=== PATIENT | female | born 1935 | race Caucasian/White ===

== ENCOUNTER 2021-09-19 15:26 | Inpatient (IN) | payer MEDICARE, OTHER ==
[2021-09-19 16:06] LABS: #Eosinphils 0.2 thou/uL (0.0-0.7); #Monocytes 0.8 thou/uL (0.11-0.59); #Neutrophils 7.8 thou/uL (1.40-6.50); %Basophils 0.4 % (0.0-1.0); %Eosinophils 1.8 % (0.0-10.0); %Lymphocytes 10.1 % (21.0-51.0); %Monocytes 7.9 % (0.0-10.0); %Neutrophils 79.8 % (42.0-75.0); Hemoglobin 13.2 g/dL (12.0-16.0); Mean Corpuscular HGB CONC 33.5 g/dL (32.0-36.0); Mean Corpuscular Hemoglobin 30.1 pg (27.0-31.0); Mean Corpuscular Volume 89.8 fL (78.0-98.0); Mean Platelet Volume 8.2 fL (7.4-10.4); Platelet Count 300 thou/uL (130-400); RBC Distribution Width 13.6 % (11.5-14.5); Red Blood Cell (RBC) Count 4.38 mill/uL (4.20-5.40); White Blood Cell (WBC) Count 9.8 thou/uL (4.8-10.8)
[2021-09-19] MEDS ORDERED: Vancomycin 1 GM/200 ML BAG ONE (16:23)
[2021-09-19 16:25] LABS: ALT (SGPT) 13 U/L (8-55); AST (SGOT) 16 U/L (5-34); Albumin 3.6 g/dL (3.4-4.8); Alkaline Phosphatase 101 U/L (40-110); Anion Gap 14 mmol/L (10-20); BUN (Urea Nitrogen) 16 mg/dL (9.8-20.1); Bilirubin, Total 0.4 mg/dL (0.2-1.2); Calc. Creatinine Clearance 0 mL/min (70-130); Calcium 9.4 mg/dL (7.8-10.44); Carbon Dioxide 26 mmol/L (23-31); Chloride 99 mmol/L (98-107); Globulin 3.5 g/dL (2.4-3.5); Glucose 110 mg/dL (83-110); Potassium 3.9 mmol/L (3.5-5.1); Protein, Total 7.1 g/dL (5.8-8.1); Sodium 135 mmol/L (136-145)
[2021-09-19 16:26] LABS: CRP (Inflammatory) 1.75 mg/dL (= or < 0.5)
[2021-09-19] MEDS ORDERED: Furosemide 20 MG/2 ML VIAL ONE (19:56)
[2021-09-19 20:05] LABS: Bacteria/HPF None Seen HPF (None Seen); Bilirubin Negative (Negative); Blood, Urine Negative (Negative); Clarity Clear (Clear); Glucose, Urine (Dipstick) Normal (Negative); Ketone, Urine Negative (Negative); Leukocyte Negative Leu/uL (Negative); Mucous/LPF Rare LPF (<2+); Nitrite Negative (Negative); Protein, Urine (Dipstick) 30 mg/dL (Neg-Trace); RBC/HPF 0-3 HPF (0-3); Specific Gravity, Urine 1.017 (1.002-1.036); Squamous Epithelial 0-3 HPF (0-3); Urobilinogen Normal mg/dL (Less than 2); WBC/HPF 0-3 HPF (0-3); pH, Urine 6.5 (5.0-9.0)
[2021-09-19 21:01] LABS: SARS-CoV-2 NAA Rapid Test Not Detected (NotDetected)
[2021-09-19] MEDS ORDERED: Ondansetron ODT 4 MG TAB SL PRN (21:45)
[2021-09-19] MEDS ORDERED: Ondansetron PF 4 MG/2 ML Vial IVP PRN (21:45)
[2021-09-19] MEDS ORDERED: Acetaminophen 325 MG TAB PO PRN (21:45)
[2021-09-19 22:26] LABS: Troponin I 0.022 ng/mL (< 0.028)
[2021-09-19] MEDS ORDERED: Nitroglycerin 0.4 MG TAB (25 Tab Bottle) SL PRN (22:50)
[2021-09-20 05:24] LABS: #Eosinphils 0.2 thou/uL (0.0-0.7); #Lymphocytes 1.2 thou/uL (1.20-3.40); #Monocytes 0.9 thou/uL (0.11-0.59); #Neutrophils 5.5 thou/uL (1.40-6.50); %Basophils 0.5 % (0.0-1.0); %Eosinophils 2.6 % (0.0-10.0); %Lymphocytes 15.2 % (21.0-51.0); %Monocytes 11.4 % (0.0-10.0); %Neutrophils 70.2 % (42.0-75.0); Hemoglobin 12.6 g/dL (12.0-16.0); Mean Corpuscular HGB CONC 32.3 g/dL (32.0-36.0); Mean Corpuscular Hemoglobin 29.3 pg (27.0-31.0); Mean Corpuscular Volume 90.9 fL (78.0-98.0); Mean Platelet Volume 8.4 fL (7.4-10.4); Platelet Count 249 thou/uL (130-400); RBC Distribution Width 13.6 % (11.5-14.5); Red Blood Cell (RBC) Count 4.29 mill/uL (4.20-5.40); White Blood Cell (WBC) Count 7.8 thou/uL (4.8-10.8)
[2021-09-20 05:38] LABS: Anion Gap 15 mmol/L (10-20); BUN (Urea Nitrogen) 11 mg/dL (9.8-20.1); Calc. Creatinine Clearance 61 mL/min (70-130); Calcium 8.7 mg/dL (7.8-10.44); Carbon Dioxide 23 mmol/L (23-31); Cardiac Risk 3.3 (Less than 4.5); Chloride 100 mmol/L (98-107); Cholesterol 136 mg/dl (< 200 Desired); Glucose 89 mg/dL (83-110); HDL Cholesterol 41 mg/dL (>60 Neg Risk); LDL Cholesterol, Calculated 82 mg/dL; Potassium 3.5 mmol/L (3.5-5.1); Sodium 134 mmol/L (136-145); Triglycerides 67 mg/dL (Less than 150)
[2021-09-20] MEDS: Furosemide 40 MG/4 ML VIAL SLOW IVP SCH ×2 (05:45→14:38)
[2021-09-20] MEDS ORDERED: Ondansetron PF 4 MG/2 ML Vial IVP PRN (06:43)
[2021-09-20] MEDS ORDERED: hydrALAZINE 20 MG/ML VIAL SLOW IVP PRN (06:43)
[2021-09-20] MEDS ORDERED: Benzonatate 100 MG CAP PO PRN (06:43)
[2021-09-20] MEDS ORDERED: Loratadine 10 MG TAB PO PRN (06:43)
[2021-09-20] MEDS ORDERED: Hydrocerin (Eucerin) Cream 120 gm Jar TOP PRN (06:43)
[2021-09-20] MEDS ORDERED: Senokot S 8.6-50 MG TAB PO PRN (06:43)
[2021-09-20] MEDS ORDERED: Sodium Chloride 0.65% Nasal 44 ML BOT EA NARE PRN (06:43)
[2021-09-20] MEDS ORDERED: Cepastat Lozenges 1 LOZ PO PRN (06:43)
[2021-09-20] MEDS ORDERED: Artificial Tear Sol 15 ML BOT EA EYE PRN (06:43)
[2021-09-20] MEDS ORDERED: Bisacodyl 5 MG TAB PO PRN (06:43)
[2021-09-20] MEDS ORDERED: GUAIFENESIN SF SOLN 200 MG/10 ML UDCUP PO PRN (06:43)
[2021-09-20] MEDS ORDERED: Loperamide HCl 2 MG CAP PO PRN (06:43)
[2021-09-20] MEDS ORDERED: Calcium Carbonate 500 MG ChewTAB PO PRN (06:43)
[2021-09-20] MEDS ORDERED: Ondansetron ODT 4 MG TAB PO PRN (06:43)
[2021-09-20] MEDS ORDERED: Melatonin 3 MG TAB PO PRN (06:45)
[2021-09-20] MEDS: Aspirin Chewable 81 MG TAB PO SCH (10:02)
[2021-09-20] MEDS: Zinc Sulfate 220 MG CAP PO SCH (10:02)
[2021-09-20] MEDS: Ascorbic Acid 500 mg Chewable Tablet PO SCH (10:02)
[2021-09-20] MEDS: Cholecalciferol 1,000 UNITS (25 MCG) TAB PO SCH (10:02)
[2021-09-20] MEDS: Calcium Carbonate 600 MG TAB PO SCH (10:02)
[2021-09-20] MEDS: Anastrozole 1 MG TAB PO SCH ×2 (10:02→22:42)
[2021-09-20] MEDS: Propranolol 10 MG TAB PO SCH ×2 (10:03→22:43)
[2021-09-20] MEDS: Oxybutynin 5 MG TAB PO SCH ×2 (10:03→22:43)
[2021-09-20] MEDS: Vitamin E 400 UNITS CAP PO SCH (10:05)
[2021-09-20] MEDS: Primidone 50 MG TAB PO SCH ×2 (10:10→22:43)
[2021-09-20] MEDS ORDERED: Lidocaine 1% (PF) 30 ML VIAL ONE (10:22)
[2021-09-20 11:23] LABS: Pleural Fluid, Protein 4.3 g/dL
[2021-09-20 11:59] LABS: RBC Count-Automated (BF) 65974 /cu.mm; WBC/Nucleated-Auto (BF) 1152 /cu.mm
[2021-09-20 12:01] LABS: Body Fluid Source Thoracentesis Fluid; Clarity Cloudy/Turbid (Clear); Tube # 1
[2021-09-20 12:02] LABS: BF Color Red
[2021-09-20 12:52] LABS: BF Segmented Neutrophils 3 %; Cell Count Non Hematic 43 %; Eosinophils 3 %; Lymphocytes 51 %
[2021-09-20] MEDS: Vancomycin 1 GM in Premix Bag 1 BAG IVPB SCH (18:05)
[2021-09-20] MEDS: traMADol HCl 50 MG TAB PO PRN (18:07)
[2021-09-21] MEDS: Furosemide 40 MG/4 ML VIAL SLOW IVP SCH ×2 (05:29→09:16)
[2021-09-21 05:53] LABS: ALT (SGPT) 9 U/L (8-55); AST (SGOT) 10 U/L (5-34); Albumin 2.9 g/dL (3.4-4.8); Alkaline Phosphatase 78 U/L (40-110); Anion Gap 8 mmol/L (10-20); BUN (Urea Nitrogen) 17 mg/dL (9.8-20.1); Bilirubin, Total 0.5 mg/dL (0.2-1.2); Calc. Creatinine Clearance 49 mL/min (70-130); Calcium 8.2 mg/dL (7.8-10.44); Carbon Dioxide 34 mmol/L (23-31); Chloride 96 mmol/L (98-107); Globulin 2.8 g/dL (2.4-3.5); Glucose 112 mg/dL (83-110); Magnesium 1.7 mg/dL (1.6-2.6); Phosphorus 3.8 mg/dL (2.3-4.7); Potassium 3.1 mmol/L (3.5-5.1); Protein, Total 5.7 g/dL (5.8-8.1); Sodium 135 mmol/L (136-145)
[2021-09-21] MEDS ORDERED: Enoxaparin Sodium 40 MG/0.4 ML SYRINGE SC SCH (09:00)
[2021-09-21] MEDS: Ascorbic Acid 500 mg Chewable Tablet PO SCH (09:04)
[2021-09-21] MEDS: Cholecalciferol 1,000 UNITS (25 MCG) TAB PO SCH (09:04)
[2021-09-21] MEDS: Potassium Chloride 20 MEQ TAB PO SCH ×3 (09:05→20:42)
[2021-09-21] MEDS: Calcium Carbonate 600 MG TAB PO SCH (09:05)
[2021-09-21] MEDS: traMADol HCl 50 MG TAB PO PRN (09:05)
[2021-09-21] MEDS: Aspirin Chewable 81 MG TAB PO SCH (09:05)
[2021-09-21] MEDS: Primidone 50 MG TAB PO SCH ×2 (09:05→20:43)
[2021-09-21] MEDS: Zinc Sulfate 220 MG CAP PO SCH (09:05)
[2021-09-21] MEDS: Vitamin E 400 UNITS CAP PO SCH (09:06)
[2021-09-21] MEDS: Oxybutynin 5 MG TAB PO SCH ×2 (09:06→20:42)
[2021-09-21] MEDS: Anastrozole 1 MG TAB PO SCH ×2 (09:06→20:42)
[2021-09-21] MEDS ORDERED: Furosemide 40 MG/4 ML VIAL ONE (09:15)
[2021-09-21] MEDS: Propranolol 10 MG TAB PO SCH ×2 (13:25→20:43)
[2021-09-21 17:11] LABS: Vancomycin, Trough 5.9 ug/mL
[2021-09-21] MEDS: Vancomycin 1 GM in Premix Bag 1 BAG IVPB SCH ×2 (17:28→17:35)
[2021-09-21] MEDS: VANCOMYCIN 2 GRAM/400 ML BAG 2 GM in Premix Bag 1 BAG IVPB SCH (17:45)
[2021-09-22 04:52] LABS: #Eosinphils 0.3 thou/uL (0.0-0.7); #Lymphocytes 1.2 thou/uL (1.20-3.40); #Monocytes 0.7 thou/uL (0.11-0.59); #Neutrophils 5.9 thou/uL (1.40-6.50); %Basophils 0.2 % (0.0-1.0); %Eosinophils 3.9 % (0.0-10.0); %Lymphocytes 14.3 % (21.0-51.0); %Monocytes 8.6 % (0.0-10.0); Hemoglobin 12.2 g/dL (12.0-16.0); Mean Corpuscular HGB CONC 33.2 g/dL (32.0-36.0); Mean Corpuscular Hemoglobin 29.8 pg (27.0-31.0); Mean Corpuscular Volume 89.8 fL (78.0-98.0); Mean Platelet Volume 8.3 fL (7.4-10.4); Platelet Count 232 thou/uL (130-400); RBC Distribution Width 13.6 % (11.5-14.5); Red Blood Cell (RBC) Count 4.11 mill/uL (4.20-5.40)
[2021-09-22 05:11] LABS: Anion Gap 9 mmol/L (10-20); BUN (Urea Nitrogen) 21 mg/dL (9.8-20.1); Calc. Creatinine Clearance 36 mL/min (70-130); Calcium 8.4 mg/dL (7.8-10.44); Carbon Dioxide 33 mmol/L (23-31); Chloride 96 mmol/L (98-107); Glucose 108 mg/dL (83-110); Magnesium 1.9 mg/dL (1.6-2.6); Potassium 3.6 mmol/L (3.5-5.1); Sodium 134 mmol/L (136-145)
[2021-09-22] MEDS ORDERED: Enoxaparin Sodium 30 MG/0.3 ML SYRINGE SC SCH (09:00)
[2021-09-22] MEDS: Anastrozole 1 MG TAB PO SCH ×2 (09:11→20:05)
[2021-09-22] MEDS: Calcium Carbonate 600 MG TAB PO SCH (09:12)
[2021-09-22] MEDS: Vitamin E 400 UNITS CAP PO SCH (09:12)
[2021-09-22] MEDS: Zinc Sulfate 220 MG CAP PO SCH (09:12)
[2021-09-22] MEDS: Aspirin Chewable 81 MG TAB PO SCH (09:12)
[2021-09-22] MEDS: Cholecalciferol 1,000 UNITS (25 MCG) TAB PO SCH (09:12)
[2021-09-22] MEDS: Ascorbic Acid 500 mg Chewable Tablet PO SCH (09:12)
[2021-09-22] MEDS: Propranolol 10 MG TAB PO SCH ×2 (09:12→20:05)
[2021-09-22] MEDS: Oxybutynin 5 MG TAB PO SCH ×2 (09:13→20:05)
[2021-09-22] MEDS: Furosemide 40 MG/4 ML VIAL SLOW IVP SCH (09:13)
[2021-09-22] MEDS: Primidone 50 MG TAB PO SCH ×2 (09:13→20:05)
[2021-09-22 14:15] LABS: Fungus Stain Final report (.)
[2021-09-22] MEDS ORDERED: Sodium Chloride 0.65% Nasal 44 ML BOT EA NARE PRN (15:52)
[2021-09-22] MEDS: Potassium Chloride 20 MEQ TAB PO SCH (16:52)
[2021-09-22] MEDS: cefTRIAXone\\ROCEPHIN 1 GM in Sodium Chloride 0.9% 100 ML IVPB SCH (16:52)
[2021-09-22] MEDS: VANCOMYCIN 2 GRAM/400 ML BAG 2 GM in Premix Bag 1 BAG IVPB SCH (17:43)
[2021-09-22] MEDS: Polyethylene Glycol 3350 17 GM Packet PO SCH (20:05)
[2021-09-22] MEDS: Senokot S 8.6-50 MG TAB PO SCH (20:06)
[2021-09-23 04:47] LABS: #Eosinphils 0.3 thou/uL (0.0-0.7); #Monocytes 0.7 thou/uL (0.11-0.59); #Neutrophils 6.3 thou/uL (1.40-6.50); %Basophils 0.4 % (0.0-1.0); %Eosinophils 3.5 % (0.0-10.0); %Lymphocytes 12.4 % (21.0-51.0); %Monocytes 8.5 % (0.0-10.0); %Neutrophils 75.2 % (42.0-75.0); Hemoglobin 11.7 g/dL (12.0-16.0); Mean Corpuscular HGB CONC 32.9 g/dL (32.0-36.0); Mean Corpuscular Hemoglobin 29.7 pg (27.0-31.0); Mean Platelet Volume 8.2 fL (7.4-10.4); Platelet Count 234 thou/uL (130-400); RBC Distribution Width 13.6 % (11.5-14.5); Red Blood Cell (RBC) Count 3.96 mill/uL (4.20-5.40); White Blood Cell (WBC) Count 8.3 thou/uL (4.8-10.8)
[2021-09-23 05:09] LABS: Anion Gap 10 mmol/L (10-20); BUN (Urea Nitrogen) 19 mg/dL (9.8-20.1); Calc. Creatinine Clearance 39 mL/min (70-130); Calcium 8.4 mg/dL (7.8-10.44); Carbon Dioxide 30 mmol/L (23-31); Chloride 97 mmol/L (98-107); Glucose 105 mg/dL (83-110); Potassium 3.6 mmol/L (3.5-5.1); Sodium 133 mmol/L (136-145)
[2021-09-23] MEDS: Zinc Sulfate 220 MG CAP PO SCH (08:43)
[2021-09-23] MEDS: Aspirin Chewable 81 MG TAB PO SCH (08:43)
[2021-09-23] MEDS: Anastrozole 1 MG TAB PO SCH ×2 (08:43→21:00)
[2021-09-23] MEDS: Potassium Chloride 20 MEQ TAB PO SCH ×2 (08:43→16:06)
[2021-09-23] MEDS: Cholecalciferol 1,000 UNITS (25 MCG) TAB PO SCH (08:43)
[2021-09-23] MEDS: Senokot S 8.6-50 MG TAB PO SCH ×2 (08:43→21:00)
[2021-09-23] MEDS: Propranolol 10 MG TAB PO SCH ×2 (08:43→21:01)
[2021-09-23] MEDS: Ascorbic Acid 500 mg Chewable Tablet PO SCH (08:44)
[2021-09-23] MEDS: Vitamin E 400 UNITS CAP PO SCH (08:44)
[2021-09-23] MEDS: Furosemide 20 MG/2 ML VIAL SLOW IVP SCH (08:44)
[2021-09-23] MEDS: Calcium Carbonate 600 MG TAB PO SCH (08:44)
[2021-09-23] MEDS: Primidone 50 MG TAB PO SCH ×2 (08:44→21:01)
[2021-09-23] MEDS: Oxybutynin 5 MG TAB PO SCH ×2 (08:44→21:01)
[2021-09-23] MEDS: cefTRIAXone\\ROCEPHIN 1 GM in Sodium Chloride 0.9% 100 ML IVPB SCH (16:06)
[2021-09-23] MEDS: traMADol HCl 50 MG TAB PO PRN (16:08)
[2021-09-23] MEDS: Polyethylene Glycol 3350 17 GM Packet PO SCH (21:01)
[2021-09-23] MEDS: Doxycycline 100 MG CAP PO SCH (21:01)
[2021-09-24 05:07] LABS: #Basophils 0.1 thou/uL (0.0-0.2); #Eosinphils 0.2 thou/uL (0.0-0.7); #Monocytes 0.8 thou/uL (0.11-0.59); #Neutrophils 5.3 thou/uL (1.40-6.50); %Basophils 0.7 % (0.0-1.0); %Eosinophils 3.4 % (0.0-10.0); %Monocytes 10.4 % (0.0-10.0); %Neutrophils 72.5 % (42.0-75.0); Hemoglobin 12.3 g/dL (12.0-16.0); Mean Corpuscular HGB CONC 33.6 g/dL (32.0-36.0); Mean Corpuscular Hemoglobin 30.3 pg (27.0-31.0); Mean Corpuscular Volume 90.1 fL (78.0-98.0); Mean Platelet Volume 8.5 fL (7.4-10.4); Platelet Count 224 thou/uL (130-400); RBC Distribution Width 13.6 % (11.5-14.5); Red Blood Cell (RBC) Count 4.08 mill/uL (4.20-5.40); White Blood Cell (WBC) Count 7.3 thou/uL (4.8-10.8)
[2021-09-24 05:28] LABS: Anion Gap 11 mmol/L (10-20); BUN (Urea Nitrogen) 23 mg/dL (9.8-20.1); Calc. Creatinine Clearance 39 mL/min (70-130); Calcium 8.5 mg/dL (7.8-10.44); Carbon Dioxide 29 mmol/L (23-31); Chloride 98 mmol/L (98-107); Glucose 110 mg/dL (83-110); Phosphorus 3.4 mg/dL (2.3-4.7); Sodium 134 mmol/L (136-145)
[2021-09-24] MEDS: Furosemide 20 MG/2 ML VIAL SLOW IVP SCH (09:20)
[2021-09-24] MEDS: Potassium Chloride 20 MEQ TAB PO SCH ×2 (09:21→16:42)
[2021-09-24] MEDS: Aspirin Chewable 81 MG TAB PO SCH (09:21)
[2021-09-24] MEDS: Primidone 50 MG TAB PO SCH ×2 (09:21→21:38)
[2021-09-24] MEDS: Vitamin E 400 UNITS CAP PO SCH (09:21)
[2021-09-24] MEDS: Anastrozole 1 MG TAB PO SCH ×2 (09:21→21:38)
[2021-09-24] MEDS: Oxybutynin 5 MG TAB PO SCH ×2 (09:21→21:39)
[2021-09-24] MEDS: Propranolol 10 MG TAB PO SCH ×2 (09:22→21:38)
[2021-09-24] MEDS: Doxycycline 100 MG CAP PO SCH ×2 (09:22→21:39)
[2021-09-24] MEDS: Cholecalciferol 1,000 UNITS (25 MCG) TAB PO SCH (09:22)
[2021-09-24] MEDS: Senokot S 8.6-50 MG TAB PO SCH ×2 (09:22→21:38)
[2021-09-24] MEDS: Calcium Carbonate 600 MG TAB PO SCH (09:22)
[2021-09-24] MEDS: Ascorbic Acid 500 mg Chewable Tablet PO SCH (09:22)
[2021-09-24] MEDS: Zinc Sulfate 220 MG CAP PO SCH (09:22)
[2021-09-24] MEDS: cefTRIAXone\\ROCEPHIN 1 GM in Sodium Chloride 0.9% 100 ML IVPB SCH (16:42)
[2021-09-24] MEDS: Polyethylene Glycol 3350 17 GM Packet PO SCH (21:39)
[2021-09-25] MEDS: Aspirin Chewable 81 MG TAB PO SCH (09:37)
[2021-09-25] MEDS: Primidone 50 MG TAB PO SCH ×2 (09:37→20:04)
[2021-09-25] MEDS: Calcium Carbonate 600 MG TAB PO SCH (09:37)
[2021-09-25] MEDS: Furosemide 20 MG/2 ML VIAL SLOW IVP SCH (09:37)
[2021-09-25] MEDS: Senokot S 8.6-50 MG TAB PO SCH ×2 (09:37→20:02)
[2021-09-25] MEDS: Ascorbic Acid 500 mg Chewable Tablet PO SCH (09:37)
[2021-09-25] MEDS: Oxybutynin 5 MG TAB PO SCH ×2 (09:37→20:04)
[2021-09-25] MEDS: Propranolol 10 MG TAB PO SCH ×2 (09:37→20:04)
[2021-09-25] MEDS: Cholecalciferol 1,000 UNITS (25 MCG) TAB PO SCH (09:37)
[2021-09-25] MEDS: Doxycycline 100 MG CAP PO SCH ×2 (09:37→20:03)
[2021-09-25] MEDS: Vitamin E 400 UNITS CAP PO SCH (09:37)
[2021-09-25] MEDS: Anastrozole 1 MG TAB PO SCH ×2 (09:37→20:03)
[2021-09-25] MEDS: Zinc Sulfate 220 MG CAP PO SCH (09:38)
[2021-09-25] MEDS: cefTRIAXone\\ROCEPHIN 1 GM in Sodium Chloride 0.9% 100 ML IVPB SCH (16:40)
[2021-09-25] MEDS: Polyethylene Glycol 3350 17 GM Packet PO SCH (20:04)
[2021-09-26 05:21] LABS: Anion Gap 11 mmol/L (10-20); BUN (Urea Nitrogen) 22 mg/dL (9.8-20.1); Calc. Creatinine Clearance 53 mL/min (70-130); Carbon Dioxide 30 mmol/L (23-31); Chloride 96 mmol/L (98-107); Glucose 110 mg/dL (83-110); Potassium 4.1 mmol/L (3.5-5.1); Sodium 133 mmol/L (136-145)
[2021-09-26] MEDS: Ascorbic Acid 500 mg Chewable Tablet PO SCH (09:13)
[2021-09-26] MEDS: Anastrozole 1 MG TAB PO SCH ×2 (09:13→21:22)
[2021-09-26] MEDS: Zinc Sulfate 220 MG CAP PO SCH (09:14)
[2021-09-26] MEDS: Senokot S 8.6-50 MG TAB PO SCH ×2 (09:14→21:25)
[2021-09-26] MEDS: Cholecalciferol 1,000 UNITS (25 MCG) TAB PO SCH (09:14)
[2021-09-26] MEDS: Propranolol 10 MG TAB PO SCH ×2 (09:14→21:22)
[2021-09-26] MEDS: Aspirin Chewable 81 MG TAB PO SCH (09:14)
[2021-09-26] MEDS: Furosemide 20 MG/2 ML VIAL SLOW IVP SCH (09:14)
[2021-09-26] MEDS: Calcium Carbonate 600 MG TAB PO SCH (09:14)
[2021-09-26] MEDS: Doxycycline 100 MG CAP PO SCH ×2 (09:14→21:22)
[2021-09-26] MEDS: Oxybutynin 5 MG TAB PO SCH ×2 (09:14→21:22)
[2021-09-26] MEDS: Primidone 50 MG TAB PO SCH ×2 (09:14→21:23)
[2021-09-26] MEDS: Vitamin E 400 UNITS CAP PO SCH (09:14)
[2021-09-26] MEDS: cefTRIAXone\\ROCEPHIN 1 GM in Sodium Chloride 0.9% 100 ML IVPB SCH (16:31)
[2021-09-26] MEDS: Polyethylene Glycol 3350 17 GM Packet PO SCH (21:22)
[2021-09-26] MEDS: traMADol HCl 50 MG TAB PO PRN (22:07)
[2021-09-27 08:51] VITALS: BMI 17.1
[2021-09-27] MEDS: Primidone 50 MG TAB PO SCH ×2 (09:26→20:06)
[2021-09-27] MEDS: Aspirin Chewable 81 MG TAB PO SCH (09:26)
[2021-09-27] MEDS: Furosemide 20 MG/2 ML VIAL SLOW IVP SCH (09:26)
[2021-09-27] MEDS: Calcium Carbonate 600 MG TAB PO SCH (09:26)
[2021-09-27] MEDS: Anastrozole 1 MG TAB PO SCH ×2 (09:26→20:05)
[2021-09-27] MEDS: Propranolol 10 MG TAB PO SCH ×2 (09:26→20:06)
[2021-09-27] MEDS: Oxybutynin 5 MG TAB PO SCH ×2 (09:26→20:06)
[2021-09-27] MEDS: Cholecalciferol 1,000 UNITS (25 MCG) TAB PO SCH (09:26)
[2021-09-27] MEDS: Ascorbic Acid 500 mg Chewable Tablet PO SCH (09:26)
[2021-09-27] MEDS: Senokot S 8.6-50 MG TAB PO SCH ×2 (09:26→20:07)
[2021-09-27] MEDS: Zinc Sulfate 220 MG CAP PO SCH (09:26)
[2021-09-27] MEDS: Doxycycline 100 MG CAP PO SCH ×2 (09:26→20:06)
[2021-09-27] MEDS: Vitamin E 400 UNITS CAP PO SCH (09:26)
[2021-09-27 11:44] LABS: SARS-CoV-2 PCR by NAA Not Detected (NotDetected)
[2021-09-27] MEDS: cefTRIAXone\\ROCEPHIN 1 GM in Sodium Chloride 0.9% 100 ML IVPB SCH (16:20)
[2021-09-27] MEDS: Polyethylene Glycol 3350 17 GM Packet PO SCH (20:06)
[2021-09-28] MEDS: Cholecalciferol 1,000 UNITS (25 MCG) TAB PO SCH (09:21)
[2021-09-28] MEDS: Senokot S 8.6-50 MG TAB PO SCH ×2 (09:21→21:44)
[2021-09-28] MEDS: Furosemide 20 MG/2 ML VIAL SLOW IVP SCH (09:21)
[2021-09-28] MEDS: Anastrozole 1 MG TAB PO SCH ×2 (09:21→21:43)
[2021-09-28] MEDS: Aspirin Chewable 81 MG TAB PO SCH (09:21)
[2021-09-28] MEDS: Zinc Sulfate 220 MG CAP PO SCH (09:21)
[2021-09-28] MEDS: Calcium Carbonate 600 MG TAB PO SCH (09:22)
[2021-09-28] MEDS: Ascorbic Acid 500 mg Chewable Tablet PO SCH (09:22)
[2021-09-28] MEDS: Oxybutynin 5 MG TAB PO SCH ×2 (09:22→21:44)
[2021-09-28] MEDS: Doxycycline 100 MG CAP PO SCH ×2 (09:22→21:44)
[2021-09-28] MEDS: Vitamin E 400 UNITS CAP PO SCH (09:22)
[2021-09-28] MEDS: Primidone 50 MG TAB PO SCH ×2 (09:23→21:47)
[2021-09-28] MEDS: Propranolol 10 MG TAB PO SCH ×2 (09:23→21:43)
[2021-09-28] MEDS ORDERED: Iopamidol-370 76% 500 ML 1 ML ONE (10:22)
[2021-09-28] MEDS: Polyethylene Glycol 3350 17 GM Packet PO SCH (21:44)
[2021-09-29] MEDS: Lactated Ringer's 1,000 ML IV SCH (05:06)
[2021-09-29] MEDS: Primidone 50 MG TAB PO SCH ×2 (08:45→20:14)
[2021-09-29] MEDS: Vitamin E 400 UNITS CAP PO SCH (08:45)
[2021-09-29] MEDS: Propranolol 10 MG TAB PO SCH ×2 (08:46→20:13)
[2021-09-29] MEDS: Ascorbic Acid 500 mg Chewable Tablet PO SCH (08:46)
[2021-09-29] MEDS: Cholecalciferol 1,000 UNITS (25 MCG) TAB PO SCH (08:46)
[2021-09-29] MEDS: Calcium Carbonate 600 MG TAB PO SCH (08:47)
[2021-09-29] MEDS: Aspirin Chewable 81 MG TAB PO SCH (08:47)
[2021-09-29] MEDS: Anastrozole 1 MG TAB PO SCH ×2 (08:47→20:13)
[2021-09-29] MEDS: Zinc Sulfate 220 MG CAP PO SCH (08:47)
[2021-09-29] MEDS: Oxybutynin 5 MG TAB PO SCH ×2 (08:47→20:14)
[2021-09-29] MEDS: Doxycycline 100 MG CAP PO SCH ×2 (08:48→20:14)
[2021-09-29] MEDS: Senokot S 8.6-50 MG TAB PO SCH ×2 (08:48→21:40)
[2021-09-29] MEDS ORDERED: Furosemide 20 MG TAB PO SCH (09:00)
[2021-09-29] MEDS ORDERED: CEFAZOLIN 1 GM VIAL ONE (14:20)
[2021-09-29] MEDS ORDERED: Sodium Chloride 0.9% 100 ML ONE (14:21)
[2021-09-29] MEDS ORDERED: SUGAMMADEX SODIUM 200 MG/2 ML VIAL ONE (14:29)
[2021-09-29] MEDS ORDERED: Famotidine/PF 20 mg/2ml Vial ONE (14:29)
[2021-09-29] MEDS ORDERED: Fentanyl 100 MCG/2 ML VIAL ONE (14:29)
[2021-09-29] MEDS ORDERED: PROPOFOL 200 MG/20 ML VIAL ONE (14:50)
[2021-09-29] MEDS ORDERED: Rocuronium Bromide 10 MG/ML (10ML VIAL) ONE (14:50)
[2021-09-29] MEDS ORDERED: Ondansetron PF 4 MG/2 ML Vial ONE (14:50)
[2021-09-29] MEDS ORDERED: Dexamethasone 20 MG/5 ML VIAL ONE (14:50)
[2021-09-29] MEDS ORDERED: PHENYLEPHRINE-NS 100 MCG/ML 10 ML SYRINGE ONE (14:50)
[2021-09-29] MEDS ORDERED: Lidocaine 1% PF 5 ML VIAL ONE (14:50)
[2021-09-29] MEDS ORDERED: Promethazine HCl 25 MG/ML VIAL IVPB PRN (15:22)
[2021-09-29] MEDS ORDERED: PACU-Morphine 4MG/ML VIAL SLOW IVP PRN (15:22)
[2021-09-29] MEDS: Bisacodyl 10 MG SUPP PR SCH ×2 (18:05→20:19)
[2021-09-29] MEDS: traMADol HCl 50 MG TAB PO PRN (20:14)
[2021-09-29] MEDS: Polyethylene Glycol 3350 17 GM Packet PO SCH (20:19)
[2021-09-30] MEDS: Lactated Ringer's 1,000 ML IV SCH ×2 (02:32→17:29)
[2021-09-30] MEDS: Bisacodyl 10 MG SUPP PR SCH ×3 (03:51→21:25)
[2021-09-30] MEDS: Aspirin Chewable 81 MG TAB PO SCH (08:29)
[2021-09-30] MEDS: Propranolol 10 MG TAB PO SCH ×2 (08:29→21:26)
[2021-09-30] MEDS: Doxycycline 100 MG CAP PO SCH ×2 (08:29→21:26)
[2021-09-30] MEDS: Cholecalciferol 1,000 UNITS (25 MCG) TAB PO SCH (08:30)
[2021-09-30] MEDS: Vitamin E 400 UNITS CAP PO SCH (08:30)
[2021-09-30] MEDS: Oxybutynin 5 MG TAB PO SCH ×2 (08:30→21:26)
[2021-09-30] MEDS: Calcium Carbonate 600 MG TAB PO SCH (08:30)
[2021-09-30] MEDS: Zinc Sulfate 220 MG CAP PO SCH (08:30)
[2021-09-30] MEDS: Primidone 50 MG TAB PO SCH ×2 (08:30→21:26)
[2021-09-30] MEDS: Ascorbic Acid 500 mg Chewable Tablet PO SCH (08:30)
[2021-09-30] MEDS: Anastrozole 1 MG TAB PO SCH ×2 (08:30→21:25)
[2021-09-30] MEDS: Senokot S 8.6-50 MG TAB PO SCH ×2 (08:31→21:26)
[2021-09-30] MEDS ORDERED: traMADol HCl 50 MG TAB PO PRN (11:15)
[2021-09-30] MEDS: Polyethylene Glycol 3350 17 GM Packet PO SCH (21:27)
[2021-10-01] MEDS: Bisacodyl 10 MG SUPP PR SCH ×2 (04:36→11:31)
[2021-10-01] MEDS: Anastrozole 1 MG TAB PO SCH (08:51)
[2021-10-01] MEDS: Aspirin Chewable 81 MG TAB PO SCH (08:51)
[2021-10-01] MEDS: Zinc Sulfate 220 MG CAP PO SCH (08:52)
[2021-10-01] MEDS: Oxybutynin 5 MG TAB PO SCH (08:52)
[2021-10-01] MEDS: Calcium Carbonate 600 MG TAB PO SCH (08:52)
[2021-10-01] MEDS: Vitamin E 400 UNITS CAP PO SCH (08:52)
[2021-10-01] MEDS: Primidone 50 MG TAB PO SCH (08:52)
[2021-10-01] MEDS: Cholecalciferol 1,000 UNITS (25 MCG) TAB PO SCH (08:52)
[2021-10-01] MEDS: Doxycycline 100 MG CAP PO SCH (08:52)
[2021-10-01] MEDS: Propranolol 10 MG TAB PO SCH (08:52)
[2021-10-01] MEDS: Ascorbic Acid 500 mg Chewable Tablet PO SCH (08:52)
[2021-10-01] MEDS: Senokot S 8.6-50 MG TAB PO SCH (08:55)
[2021-10-01 16:28] VITALS: BP 169/77; TEMP 98.2
[2021-10-01] MEDS: Lactated Ringer's 1,000 ML IV SCH (17:09)
== END 2021-10-01 18:59 | DRG 166 ==
LOC: ERS 15:26 → 2NO 18:57
PROVIDERS: ADMIT Internal Medicine; ATTEND Family Medicine
PROC: 0W9B3ZX Drainage of Left Pleural Cavity, Percutaneous Approach, Diagnostic (ICD-10-PCS; principal; 2021-09-19)
PROC: 0W9B30Z Drainage of Left Pleural Cavity with Drainage Device, Percutaneous Approach (ICD-10-PCS; 2021-09-29)
PROC: 0BBP4ZX Excision of Left Pleura, Percutaneous Endoscopic Approach, Diagnostic (ICD-10-PCS; 2021-09-29)
DX: C34.32 Malignant neoplasm of lower lobe, left bronchus or lung (principal); I50.33 Acute on chronic diastolic (congestive) heart failure; J96.01 Acute respiratory failure with hypoxia; I21.A1 Myocardial infarction type 2; J91.0 Malignant pleural effusion; L03.116 Cellulitis of left lower limb; E44.0 Moderate protein-calorie malnutrition; E87.1 Hypo-osmolality and hyponatremia; Z20.822 Contact with and (suspected) exposure to COVID-19; Z96.641 Presence of right artificial hip joint; F32.A Depression, unspecified; F41.9 Anxiety disorder, unspecified; E83.42 Hypomagnesemia; Z92.3 Personal history of irradiation; Z92.21 Personal history of antineoplastic chemotherapy; Z91.81 History of falling; Z68.20 Body mass index [BMI] 20.0-20.9, adult; Z87.891 Personal history of nicotine dependence; Z85.118 Personal history of other malignant neoplasm of bronchus and lung; Z90.49 Acquired absence of other specified parts of digestive tract; Z90.710 Acquired absence of both cervix and uterus; Z90.12 Acquired absence of left breast and nipple; Z79.899 Other long term (current) drug therapy; Z85.3 Personal history of malignant neoplasm of breast; Z85.038 Personal history of other malignant neoplasm of large intestine
CPT/HCPCS: 36415; 36416; 51701; 71045; 71260; 74177; 80048; 80053; 80061; 80202; 81003; 81015; 82150; 82550; 82945; 83615; 83735; 83880; 83986; 84100; 84157; 84484; 85025; 85060; 86140; 87040; 87070; 87086; 87116; 87205; 87206; 88112; 88305; 88341; 88342; 89051; 93005; 93306; 94760; 96365; 96366; 96375; 97139; C1729; J0360; J0690; J0696; J1100; J1650; J1940; J2405; J2704; J3010; J3370; J3475; J3490; J7120; Q9967; S0028; U0002; U0003; U0005

== ENCOUNTER 2021-11-04 14:14 | Outpatient (CLI) | payer MEDICARE, OTHER | END 2021-11-04 14:15 | disposition home or self-care (01) | LOC: RAD 14:14 | PROVIDERS: ATTEND Internal Medicine Critical Care Medicine | DX: R06.00 Dyspnea, unspecified (principal); R91.8 Other nonspecific abnormal finding of lung field | CPT/HCPCS: 71046 ==

== ENCOUNTER 2021-11-15 10:36 | Outpatient (CLI) | payer MEDICARE, OTHER | END 2021-11-15 10:37 | disposition home or self-care (01) | LOC: CT 10:36 | PROVIDERS: ATTEND Internal Medicine Hematology & Oncology | DX: C34.02 Malignant neoplasm of left main bronchus (principal); R91.8 Other nonspecific abnormal finding of lung field; C78.7 Secondary malignant neoplasm of liver and intrahepatic bile duct; M41.85 Other forms of scoliosis, thoracolumbar region; S22.49XD Multiple fractures of ribs, unspecified side, subsequent encounter for fracture with routine healing; C79.51 Secondary malignant neoplasm of bone; M19.012 Primary osteoarthritis, left shoulder | CPT/HCPCS: 71260; 74177; 78306; 82565; A9503 ==

== ENCOUNTER 2021-11-26 09:24 | Outpatient (CLI) | payer MEDICARE ==
[~2021-11-26 09:24] MED LIST: Iopamidol 370 76% 100 ML VIAL ONE
== END 2021-11-26 09:25 | disposition home or self-care (01) ==
LOC: CT 09:24
PROVIDERS: ATTEND Internal Medicine Hematology & Oncology
DX: C34.02 Malignant neoplasm of left main bronchus (principal)
CPT/HCPCS: 70470